=== PATIENT | female | born 1955 | race Caucasian/White ===

== ENCOUNTER → 2020-07-03 | Outpatient (CLI) | payer MEDICARE, BC ==
--- NOTE | 2020-07-03 10:08 | RAD ---
ADDENDUM #1 Addendum: The pathology findings corresponding with the right breast biopsy at the 12:00 position dem onstrate invasive ductal carcinoma, histologic grade 1. 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 The pathology findings are concordant with the imaging findings. BI-RADS Category 6: Known Malignancy. Surgical and oncologic consultation is recommended. Electronically signed by: Briana Gallegos MD (07/05/2020 9:18 AM) [id number] ORIGINAL REPORT EXAM: Sonographic guided right breast biopsy; right breast biopsy clip placement; right breast postbi opsy mammogram. HISTORY: 65-year-old female presents for sonographic guided biopsy of a 6 mm hypoechoic lesion within the 12:00 position of the right breast demonstrated on a sonogram performed 06/19/2020. TECHNIQUE: The risks of the procedure discussed with the patient and written and verbal consent was o btained. A timeout was performed. Sonographic imaging of the right breast was performed and the lesio n of concern was identified. Skin this location was sterilely prepped, draped and infiltrated with 1 percent lidocaine. Multiple core samples were obtained through the lesion of concern with sonographic guidance and a biopsy clip was advanced into the biopsy bed. Manual compression was maintained until hemostasis was achieved. A sterile measures placed. A post plasty mammogram demonstrates the biopsy clip in expected position. The patient tolerated the procedure without difficulty and was discharged in stable condition. IMPRESSION: Sonographic guided biopsy of a small hypoechoic lesion at the 12:00 position of the right breast and biopsy clip placement. An addendum to this report will be submitted when pathology result s are available. Electronically signed by: Briana Gallegos MD (07/03/2020 10:06 AM) [id number]
--- NOTE | 2020-07-03 15:03 | RAD ---
EXAM: Sonographic guided right breast biopsy; right breast biopsy clip placement; right breast postbi opsy mammogram. HISTORY: 65-year-old female presents for sonographic guided biopsy of a 6 mm hypoechoic lesion within the 12:00 position of the right breast demonstrated on a sonogram performed 06/19/2020. TECHNIQUE: The risks of the procedure discussed with the patient and written and verbal consent was o btained. A timeout was performed. Sonographic imaging of the right breast was performed and the lesio n of concern was identified. Skin this location was sterilely prepped, draped and infiltrated with 1 percent lidocaine. Multiple core samples were obtained through the lesion of concern with sonographic guidance and a biopsy clip was advanced into the biopsy bed. Manual compression was maintained until hemostasis was achieved. A sterile measures placed. A post plasty mammogram demonstrates the biopsy clip in expected position. The patient tolerated the procedure without difficulty and was discharged in stable condition. IMPRESSION: Sonographic guided biopsy of a small hypoechoic lesion at the 12:00 position of the right breast and biopsy clip placement. An addendum to this report will be submitted when pathology result s are available. Electronically signed by: Briana Gallegos MD (07/03/2020 3:00 PM) [id number]
--- NOTE | 2020-07-04 17:10 | PATHOLOGY ---
[facility] Accession Number: [id number] . 01 Material submitted: . breast - RIGHT BREAST MASS 12:00 3CMFN. Modifiers: right . 01 Clinical history: . ABNORMAL RIGHT MAMMOGRAM . 02 Diagnosis: Breast tissue, right breast mass, 12:00, needle biopsies: - INVASIVE DUCTAL CARCINOMA, HISTOLOGIC GRADE 1. SEE COMMENT. - DUCTAL CARCINOMA IN SITU, LOW-GRADE, CRIBRIFORM TYPE. . (JPM:mm; 07/04/2020) [facility] 07/04/2020 1219 Local . 02 Comment: Sections of the right breast mass at 12:00 needle biopsy reveal an invasive mammary carcinoma. The neoplasm largely consists of tubular/acinar structures which irregularly infiltrate a reactive desmoplastic stroma. The tumor shows mild nuclear pleomorphism and little mitotic activity. There is focal associated low-grade ductal carcinoma in situ of cribriform type. The invasive carcinoma measures up to 6 mm in greatest dimension on the glass slide. There are microcalcifications associated with invasive carcinoma. There is no lymphovascular tumor invasion. Breast prognostic studies will be obtained on block A1, the results of which will be reported separately. . This case also examined by Dr. Shiva Sweet, who concurs with the diagnosis. . (JPM:mm; 07/04/2020) . 02 Electronically signed: . Vic Dixon MD, Pathologist NPI- [id number] . 01 Gross description: . The specimen is received in formalin, labeled "Cynthia Orlando, right breast". Received are three needle cores of fibrofatty tissue measuring 1.3 x 0.6 x 0.2 cm in aggregate dimensions. The specimen is submitted entirely in cassettes A1 through A3. The cold ischemic time is less than one minute. The total formalin fixation time is 12 hours and 37 minutes. (CAA; 07/03/2020) QAC/QAC 07/03/2020 1608 Local . 02 Pathologist provided ICD-10: C50.911, D05.11 . 02 CPT . 280441 Specimen Comment: A courtesy copy of this report has been sent to [phone], [phone] Specimen Comment: [id number] Specimen Comment: Report sent to DR DIEGO / DR COTTO Performed at: 01 [facility] [address], [place] [id number] MD Shiva Sweet MD Phone: [phone] Performed at: 02 [facility] [address] [place], [place] [id number] MD Vic Dixon MD Phone: [phone]
== END | disposition home or self-care (01) ==
LOC: US 08:37
PROVIDERS: ATTEND Family Medicine
DX: N63.12 Unspecified lump in the right breast, upper inner quadrant (principal); R92.8 Other abnormal and inconclusive findings on diagnostic imaging of breast; C50.911 Malignant neoplasm of unspecified site of right female breast; Z79.899 Other long term (current) drug therapy
CPT/HCPCS: 19083; 77065; 88305; C1713

== ENCOUNTER → 2020-10-18 | Outpatient (CLI) | payer MEDICARE, BC ==
[2020-10-18 09:34] LABS: CALCIUM 9.2 mg/dL (8.5-10.1); CREATININE 0.5 mg/dL (0.6-1.0); GFR 123.8; POTASSIUM 3.9 mmol/L (3.5-5.1)
[2020-10-18 09:50] LABS: BASO # 0.1 x10^3/uL (0.0-0.2); BASO % 1 % (0-3); EOS # 0.1 x10^3/uL (0.0-0.7); EOS % 2 % (0-3); HEMATOCRIT 45.9 % (36.0-47.0); HEMOGLOBIN 15.6 g/dL (12.0-15.5); LYMPH # 1.4 x10^3/uL (1.0-4.8); LYMPH % 22 % (24-48); MEAN CORPUSCULAR HEMOGLOBIN 32 pg (25-35); MEAN CORPUSCULAR HGB CONC 34 g/dL (31-37); MEAN CORPUSCULAR VOLUME 94 fL (79-100); MONO # 0.6 x10^3/uL (0.0-1.1); MONO % 9 % (0-9); NEUT # 4.2 x10^3/uL (1.8-7.7); NEUT % 67 % (31-73); PLATELET COUNT 273 x10^3/uL (140-400); RED BLOOD COUNT 4.91 x10^6/uL (3.50-5.40); RED CELL DISTRIBUTION WIDTH 14.2 % (11.5-14.5); WHITE BLOOD COUNT 6.4 x10^3/uL (4.0-11.0)
== END ==
LOC: ONCLAB 08:37
PROVIDERS: ATTEND Physician Assistant
DX: C50.411 Malignant neoplasm of upper-outer quadrant of right female breast (principal)
CPT/HCPCS: 36415; 80048; 83615; 85025; 86300

== ENCOUNTER → 2021-01-01 | Outpatient (CLI) | payer MEDICARE, BC ==
[2021-01-01 08:51] LABS: BASO # 0.1 x10^3/uL (0.0-0.2); BASO % 1 % (0-3); EOS # 0.1 x10^3/uL (0.0-0.7); EOS % 2 % (0-3); HEMATOCRIT 46.5 % (36.0-47.0); HEMOGLOBIN 15.9 g/dL (12.0-15.5); LYMPH # 1.2 x10^3/uL (1.0-4.8); LYMPH % 23 % (24-48); MEAN CORPUSCULAR HEMOGLOBIN 33 pg (25-35); MEAN CORPUSCULAR HGB CONC 34 g/dL (31-37); MEAN CORPUSCULAR VOLUME 96 fL (79-100); MONO # 0.5 x10^3/uL (0.0-1.1); MONO % 10 % (0-9); NEUT # 3.3 x10^3/uL (1.8-7.7); NEUT % 65 % (31-73); PLATELET COUNT 225 x10^3/uL (140-400); RED BLOOD COUNT 4.86 x10^6/uL (3.50-5.40); RED CELL DISTRIBUTION WIDTH 13.9 % (11.5-14.5); WHITE BLOOD COUNT 5.1 x10^3/uL (4.0-11.0)
[2021-01-01 09:00] LABS: CREATININE 0.7 mg/dL (0.6-1.0); POTASSIUM 4.4 mmol/L (3.5-5.1)
[2021-01-01 09:06] LABS: ALBUMIN 3.9 g/dL (3.4-5.0); ALBUMIN/GLOBULIN RATIO 1.3 (1.0-1.7); TOTAL BILIRUBIN 0.5 mg/dL (0.2-1.0); TOTAL PROTEIN 6.9 g/dL (6.4-8.2)
== END ==
LOC: ONCLAB 08:35
PROVIDERS: ATTEND Internal Medicine Hematology & Oncology
DX: D05.11 Intraductal carcinoma in situ of right breast (principal)
CPT/HCPCS: 36415; 80053; 83615; 85025

== ENCOUNTER → 2021-07-15 | Outpatient (CLI) | payer MEDICARE, BC ==
[2021-07-15 09:37] LABS: BASO # 0.1 x10^3/uL (0.0-0.2); BASO % 1 % (0-3); EOS # 0.1 x10^3/uL (0.0-0.7); EOS % 2 % (0-3); HEMATOCRIT 47.3 % (36.0-47.0); HEMOGLOBIN 15.6 g/dL (12.0-15.5); LYMPH # 1.4 x10^3/uL (1.0-4.8); LYMPH % 27 % (24-48); MEAN CORPUSCULAR HEMOGLOBIN 31 pg (25-35); MEAN CORPUSCULAR HGB CONC 33 g/dL (31-37); MEAN CORPUSCULAR VOLUME 95 fL (79-100); MONO # 0.6 x10^3/uL (0.0-1.1); MONO % 10 % (0-9); NEUT # 3.2 x10^3/uL (1.8-7.7); NEUT % 60 % (31-73); PLATELET COUNT 270 x10^3/uL (140-400); RED BLOOD COUNT 4.98 x10^6/uL (3.50-5.40); WHITE BLOOD COUNT 5.4 x10^3/uL (4.0-11.0)
[2021-07-15 09:46] LABS: CREATININE 0.7 mg/dL (0.6-1.0); GFR 83.7; POTASSIUM 4.6 mmol/L (3.5-5.1)
[2021-07-15 09:49] LABS: ALBUMIN 3.6 g/dL (3.4-5.0); ALBUMIN/GLOBULIN RATIO 1.1 (1.0-1.7); TOTAL BILIRUBIN 0.4 mg/dL (0.2-1.0); TOTAL PROTEIN 6.9 g/dL (6.4-8.2)
== END ==
LOC: ONCLAB 08:29
PROVIDERS: ATTEND Internal Medicine Hematology & Oncology
DX: D05.11 Intraductal carcinoma in situ of right breast (principal)
CPT/HCPCS: 36415; 80053; 83615; 85025